=== PATIENT | female | born 1990 | race Caucasian/White ===

== ENCOUNTER 2017-12-27 09:14 | Emergency (ER) | payer MEDICAID ==
[~2017-12-27] VITALS: Ht 165.1 cm; Wt 63.6 kg
[~2017-12-27 09:14] MED LIST: GABA300C PO; [UNRECOGNIZED DRUG - CODE] OP
[2017-12-27] MEDS ORDERED: ketorolac trometh. 30mg/ml inj. IV ONE (10:40)
[2017-12-27] MEDS ORDERED: LORazepam 2 mg/ml vial IV ONE (10:40)
[2017-12-27] MEDS ORDERED: normal saline 1000ML IV soln IVB ONE (10:40)
[2017-12-27] MEDS ORDERED: dexamethasone sod phosphate 10mg/ml inj IV STA (10:40)
[2017-12-27] MEDS ORDERED: metoclopramide 5 mg/ml inj IV ONE (10:40)
[2017-12-27 11:34] VITALS: BP 95/46
== END 2017-12-27 12:36 | disposition home or self-care (01) ==
LOC: ER 09:15
DX: G43.909 Migraine, unspecified, not intractable, without status migrainosus (principal); Z88.5 Allergy status to narcotic agent
CPT/HCPCS: 96374; 96375; 99284; J1100; J1885; J2060; J2765

== ENCOUNTER 2018-07-22 20:27 | Emergency (ER) | payer MEDICAID ==
[~2018-07-22] VITALS: Ht 177.8 cm; Wt 72.0 kg
[2018-07-22 21:22] LABS: BASOPHILS % (AUTO) 0.5 % (0-1); EOSINOPHILS # (AUTO) 0.1 X10'3 (0-0.9); EOSINOPHILS % (AUTO) 1.7 % (0-6); HEMATOCRIT 38.5 % (35.0-45.0); LYMPHOCYTES # (AUTO) 2.6 X10'3 (1.1-4.8); LYMPHOCYTES % (AUTO) 44.1 % (21-51); MEAN CORPUSCULAR HEMOGLOBIN 30.2 PG (27.0-31.0); MEAN CORPUSCULAR HGB CONC 33.8 g/dL (33.0-36.5); MEAN CORPUSCULAR VOLUME 89.2 FL (78-98); MEAN PLATELET VOLUME 9.3 FL (7.4-10.4); MONOCYTES # (AUTO) 0.6 X10'3 (0-0.9); MONOCYTES % (AUTO) 9.8 % (2-12); NEUTROPHILS # (AUTO) 2.5 X10'3 (1.8-7.7); NEUTROPHILS % (AUTO) 43.9 % (42-75); PLATELET COUNT 178 X10'3 (140-440); RED BLOOD COUNT 4.31 X10'6 (4.20-5.60); RED CELL DISTRIBUTION WIDTH 12.8 % (11.5-14.5); WHITE BLOOD COUNT 5.8 X10'3 (4.5-11.0)
[2018-07-22 21:50] LABS: PARTIAL THROMBOPLASTIN TIME 28 SECONDS (22-32)
[2018-07-22 22:14] LABS: ALANINE AMINOTRANSFERASE 40 U/L (12-78); ALBUMIN/GLOBULIN RATIO 1.1 (1.1-1.5); ALKALINE PHOSPHATASE 67 IU/L (46-116); ANION GAP 11 (8-16); ASPARTATE AMINO TRANSFERASE 33 U/L (10-37); BILIRUBIN,TOTAL 0.6 MG/DL (0.1-1.0); BLOOD UREA NITROGEN 16 MG/DL (7-18); BUN/CREATININE RATIO 19.8 (6.6-38.0); CALCIUM 8.7 MG/DL (8.5-10.1); CHLORIDE 106 MMOL/L (99-107); CREATININE 0.81 MG/DL (0.40-0.90); GLUCOSE 95 MG/DL (70-104); POTASSIUM 3.7 MMOL/L (3.5-5.1); SODIUM 140 MMOL/L (135-145); TOTAL CARBON DIOXIDE 22.6 MMOL/L (24-32); TOTAL PROTEIN 7.5 G/DL (6.4-8.2); eGFR 84 ML/MIN
[2018-07-22 22:18] VITALS: BP 114/65
== END 2018-07-22 23:42 | disposition left against medical advice (07) ==
LOC: ER 20:27
DX: R07.89 Other chest pain (principal); R06.02 Shortness of breath; Z53.21 Procedure and treatment not carried out due to patient leaving prior to being seen by health care provider; Z88.5 Allergy status to narcotic agent; Z79.899 Other long term (current) drug therapy
CPT/HCPCS: 36415; 71045; 80053; 84484; 85025; 85610; 85730; 93005

== ENCOUNTER 2022-04-12 11:38 | Emergency (ER) | payer MEDICAID, OTHER ==
[~2022-04-12] VITALS: Ht 162.6 cm; Wt 70.5 kg
[2022-04-12 11:50] VITALS: BP 106/74
[2022-04-12] MEDS ORDERED: orphenadrine citrate 60mg/2ml inj. IM ONE (13:10)
[2022-04-12] MEDS ORDERED: LIDO1ADH19 TOP (13:15)
[2022-04-12] MEDS ORDERED: NAPR-56 PO (13:15)
[2022-04-12] MEDS ORDERED: ORPH100T2 PO (13:15)
== END 2022-04-12 13:46 | disposition home or self-care (01) ==
LOC: ER 11:40
DX: S39.012A Strain of muscle, fascia and tendon of lower back, initial encounter (principal); M62.830 Muscle spasm of back; Z88.5 Allergy status to narcotic agent; W22.8XXA Striking against or struck by other objects, initial encounter; Y93.89 Activity, other specified; Y92.89 Other specified places as the place of occurrence of the external cause; Y99.8 Other external cause status
CPT/HCPCS: 96372; 99283; J2360

== ENCOUNTER 2023-06-20 08:10 | Emergency (ER) | payer MEDICAID, OTHER ==
[~2023-06-20] VITALS: Ht 165.1 cm; Wt 77.6 kg
[~2023-06-20 08:10] MED LIST changes: +LIDO1ADH19 TOP; +ORPH100T4 PO
[2023-06-20 08:19] VITALS: BP 115/79; PULSE 73; RESP 16; TEMP 98.9; O2SAT 96
[2023-06-20] MEDS: dexamethasone sod phosphate 10mg/ml inj IM STA (10:09)
[2023-06-20] MEDS: ketorolac tromethamine 15mg/ml inj. IM ONE (10:09)
[2023-06-20] MEDS ORDERED: PROM118S5 PO (10:15)
[2023-06-20] MEDS ORDERED: ALBU8HFA INH (10:15)
[2023-06-20] MEDS ORDERED: PRED20TA PO (10:15)
[2023-06-20] MEDS: ketorolac trometh inj. 60 MG/2 ML VIAL IM ONE (10:19)
== END 2023-06-20 10:59 | disposition home or self-care (01) ==
LOC: ER 08:11
DX: B34.9 Viral infection, unspecified (principal); Z88.5 Allergy status to narcotic agent; Z79.2 Long term (current) use of antibiotics; Z79.899 Other long term (current) drug therapy
CPT/HCPCS: 71045; 96372; 99284; J1100; J1885